=== PATIENT | male | born 1970 | race Caucasian/White ===

== ENCOUNTER 2020-06-05 14:34 | Emergency (ER) | payer MEDICAID ==
[~2020-06-05] VITALS: Ht 182.9 cm; Wt 81.2 kg
[2020-06-05 15:16] VITALS: Ht 182.9 cm; Wt 81.2 kg
[2020-06-05 16:43] LABS: BASOPHIL % 0.7 % (0.2-1.5); PLATELET COUNT 273 x10^3mcL (152-348); RED CELL DISTRIBUTION WIDTH 14.3 % (12.1-16.2)
[2020-06-05 16:46] LABS: CALCIUM 9.7 mg/dL (8.5-10.1); CARBON DIOXIDE 31.2 mmol/L (21-32); CHLORIDE SERUM 105 mmol/L (98-107); CREATININE SERUM 0.8 mg/dL (0.7-1.3); GFR1 > 60 mL/min; GLUCOSE SERUM 96 mg/dL (74-106); POTASSIUM SERUM 4.2 mmol/L (3.5-5.1); SODIUM SERUM 144 mmol/L (136-145)
[2020-06-05 16:51] LABS: ALBUMIN 4.5 g/dL (3.4-5.0); ALKALINE PHOSPHATASE 84 U/L (46-116); ALT/SGPT 35 U/L (16-63); AST/SGOT 21 U/L (15-37); BILIRUBIN TOTAL 0.5 mg/dL (0.20-1.00); TOTAL PROTEIN, SERUM 8.2 g/dL (6.4-8.2)
[2020-06-05 17:18] LABS: microscopic required? NO
[2020-06-05 17:52] LABS: urine erythrocyte NEGATIVE (NEGATIVE)
[2020-06-05] MEDS ORDERED: NAPROXEN375 MG PO (18:12)
[2020-06-05 18:22] VITALS: BP 124/76
== END 2020-06-05 18:22 | disposition home or self-care (01) ==
LOC: ED 14:34
PROVIDERS: Emergency Medicine
DX: M75.22 Bicipital tendinitis, left shoulder (principal)
CPT/HCPCS: J1885